=== PATIENT | male | born 1945 | race Hispanic/Latino ===

== ENCOUNTER 2017-02-15 18:03 | Inpatient (IN) | payer BC, MEDICARE ==
[2017-02-15] MEDS ORDERED: HYDROcodone/Acetaminophen 5/325 mg Tablet ONE (18:59)
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
[2017-02-15] MEDS ORDERED: Ondansetron HCl/PF 4 MG/2 ML Vial ONE (20:49)
[2017-02-15 21:16] LABS: #Eosinphils 0.1 thou/uL (0.0-0.7); #Lymphocytes 1.3 thou/uL (1.20-3.40); #Monocytes 0.7 thou/uL (0.11-0.59); #Neutrophils 11.4 thou/uL (1.40-6.50); %Basophils 0.1 % (0.0-1.0); %Eosinophils 0.5 % (0.0-10.0); %Lymphocytes 9.3 % (21.0-51.0); %Monocytes 4.9 % (0.0-10.0); Hematocrit 41.3 % (42.0-52.0); Mean Platelet Volume 6.6 fL (7.4-10.4); Red Blood Cell (RBC) Count 4.03 mill/uL (4.70-6.10); White Blood Cell (WBC) Count 13.4 thou/uL (4.8-10.8)
[2017-02-15 21:22] LABS: PTT 27.1 SEC (22.9-36.1); Prothrombin Time 14.4 SEC (12.0-14.7)
[2017-02-15 21:34] LABS: Lactic Acid - Sepsis 1.2 mmol/L (0.5-2.2)
[2017-02-15 21:38] LABS: ALT (SGPT) 16 U/L (8-55); AST (SGOT) 18 U/L (5-34); Alkaline Phosphatase 67 U/L (40-150); Anion Gap 12 mmol/L (10-20); BUN (Urea Nitrogen) 11 mg/dL (8.4-25.7); Bilirubin, Total 0.7 mg/dL (0.2-1.2); Calc. Creatinine Clearance 0 mL/min (70-130); Calcium 8.7 mg/dL (7.8-10.44); Carbon Dioxide 26 mmol/L (23-31); Chloride 104 mmol/L (98-107); Estimated GFR-MDRD 81; Globulin 2.6 g/dL (2.4-3.5); Lipase 34 U/L (8-78); Protein, Total 6.3 g/dL (5.8-8.1)
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
[2017-02-15] MEDS ORDERED: Morphine Sulfate 2 MG/ML SYRINGE SLOW IVP PRN (23:03)
[2017-02-15] MEDS ORDERED: Ondansetron ODT 4 MG TAB PO PRN (23:03)
[2017-02-15] MEDS ORDERED: Dextrose 5% in Water 1,000 ML IV PRN (23:03)
[2017-02-15] MEDS ORDERED: Dextrose 50% Abboject 50 ML SYRINGE SLOW IVP PRN (23:03)
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
[2017-02-15] MEDS: Sodium Chloride 0.9% 1,000 ML IV SCH (23:19)
[2017-02-15 23:49] VITALS: BMI 23.4
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
[2017-02-16 05:26] LABS: #Basophils 0.1 thou/uL (0.0-0.2); #Eosinphils 0.1 thou/uL (0.0-0.7); #Lymphocytes 1.2 thou/uL (1.20-3.40); #Monocytes 0.6 thou/uL (0.11-0.59); #Neutrophils 6.7 thou/uL (1.40-6.50); %Basophils 1.5 % (0.0-1.0); %Eosinophils 0.7 % (0.0-10.0); %Lymphocytes 13.5 % (21.0-51.0); %Monocytes 7.2 % (0.0-10.0); Hematocrit 39.2 % (42.0-52.0); Mean Platelet Volume 6.5 fL (7.4-10.4); Red Blood Cell (RBC) Count 3.79 mill/uL (4.70-6.10); White Blood Cell (WBC) Count 8.6 thou/uL (4.8-10.8)
[2017-02-16 05:35] LABS: Anion Gap 10 mmol/L (10-20); BUN (Urea Nitrogen) 10 mg/dL (8.4-25.7); Calc. Creatinine Clearance 77 mL/min (70-130); Calcium 8.1 mg/dL (7.8-10.44); Carbon Dioxide 25 mmol/L (23-31); Chloride 106 mmol/L (98-107); Estimated GFR-MDRD Greater than 90
[2017-02-16] MEDS ORDERED: Dextrose 50% Abboject 50 ML SYRINGE SLOW IVP PRN (08:20)
[2017-02-16] MEDS ORDERED: HumaLOG 300 UNITS/3 ML VIAL SC PRN (08:20)
[2017-02-16] MEDS ORDERED: Dextrose 5% in Water 1,000 ML IV PRN (08:20)
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
[2017-02-16] MEDS: Famotidine/PF 20 mg/2ml Vial SLOW IVP SCH ×2 (09:08→20:18)
[2017-02-16] MEDS: Sodium Chloride 0.9% 1,000 ML IV SCH ×2 (09:17→20:17)
[2017-02-16] MEDS: Famotidine 20 MG TAB PO SCH ×2 (12:55→20:18)
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
[2017-02-16] MEDS ORDERED: Midazolam HCl 2 mg/2 ml Vial ONE (17:28)
[2017-02-16] MEDS ORDERED: Fentanyl 100 MCG/2 ML VIAL ONE ×2 (17:29→19:09)
[2017-02-16] MEDS ORDERED: Lidocaine 2% Jelly 5 ML TUBE ONE (17:30)
[2017-02-16] MEDS ORDERED: Lidocaine 1% PF 5 ML VIAL ONE (17:48)
[2017-02-16] MEDS ORDERED: Ondansetron HCl/PF 4 MG/2 ML Vial ONE (17:48)
[2017-02-16] MEDS ORDERED: Propofol 200 MG/20 ML VIAL ONE (17:48)
[2017-02-16] MEDS ORDERED: ePHEDrine/0.9% NaCl/PF SYRINGE 50 mg/10 ml ONE (17:48)
[2017-02-16] MEDS ORDERED: HYDROcodone/Acetaminophen 7.5/325 mg Tablet PO PRN ×2 (18:18)
[2017-02-16] MEDS ORDERED: Ketorolac Tromethamine 30 MG/ML VIAL IVP PRN (18:19)
[2017-02-16] MEDS ORDERED: Promethazine HCl 25 MG/ML VIAL IM PRN (18:44)
[2017-02-16] MEDS ORDERED: Ondansetron HCl/PF 4 MG/2 ML Vial IVP PRN (18:44)
[2017-02-16] MEDS ORDERED: Promethazine HCl 25 MG/ML VIAL SLOW IVP PRN (18:44)
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
[2017-02-17] MEDS: Sodium Chloride 0.9% 1,000 ML IV SCH ×2 (00:03→05:59)
[2017-02-17 05:25] LABS: #Lymphocytes 0.9 thou/uL (1.20-3.40); #Monocytes 0.7 thou/uL (0.11-0.59); #Neutrophils 7.5 thou/uL (1.40-6.50); %Eosinophils 0.5 % (0.0-10.0); %Lymphocytes 9.6 % (21.0-51.0); %Monocytes 7.3 % (0.0-10.0); Hematocrit 39.7 % (42.0-52.0); Mean Platelet Volume 7.1 fL (7.4-10.4); Red Blood Cell (RBC) Count 3.81 mill/uL (4.70-6.10); White Blood Cell (WBC) Count 9.1 thou/uL (4.8-10.8)
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
[2017-02-17] MEDS ORDERED: HYDROcodone/Acetaminophen 10/325 mg Tablet PO PRN (09:44)
[2017-02-17] MEDS: HYDROcodone/Acetaminophen 10/325 mg Tablet PO SCH ×3 (09:59→21:26)
[2017-02-17] MEDS: Famotidine 20 MG TAB PO SCH ×2 (10:00→21:26)
[2017-02-17] MEDS: Ketorolac Tromethamine 30 MG/ML VIAL IVP SCH ×2 (18:42)
[2017-02-17] MEDS: Ondansetron HCl/PF 4 MG/2 ML Vial IVP PRN (21:27)
[2017-02-18] MEDS: Ketorolac Tromethamine 30 MG/ML VIAL IVP SCH ×5 (00:24→23:40)
[2017-02-18] MEDS: HYDROcodone/Acetaminophen 10/325 mg Tablet PO SCH ×4 (00:33→11:48)
[2017-02-18] MEDS ORDERED: Docusate 100 MG CAP PO SCH (03:00)
[2017-02-18] MEDS ORDERED: Senokot 8.6 MG TAB PO SCH (03:00)
[2017-02-18 05:10] LABS: #Eosinphils 0.1 thou/uL (0.0-0.7); #Lymphocytes 1.4 thou/uL (1.20-3.40); #Monocytes 0.8 thou/uL (0.11-0.59); #Neutrophils 6.6 thou/uL (1.40-6.50); %Basophils 0.5 % (0.0-1.0); %Eosinophils 1.5 % (0.0-10.0); %Lymphocytes 15.1 % (21.0-51.0); %Monocytes 8.7 % (0.0-10.0); Hematocrit 40.3 % (42.0-52.0); Mean Platelet Volume 6.7 fL (7.4-10.4); Red Blood Cell (RBC) Count 3.88 mill/uL (4.70-6.10); White Blood Cell (WBC) Count 8.9 thou/uL (4.8-10.8)
[2017-02-18 05:17] LABS: Anion Gap 11 mmol/L (10-20); BUN (Urea Nitrogen) 11 mg/dL (8.4-25.7); Calc. Creatinine Clearance 74 mL/min (70-130); Calcium 8.1 mg/dL (7.8-10.44); Carbon Dioxide 25 mmol/L (23-31); Chloride 103 mmol/L (98-107); Estimated GFR-MDRD 88; Phosphorus 2.6 mg/dL (2.3-4.7)
[2017-02-18] MEDS: Ondansetron HCl/PF 4 MG/2 ML Vial IVP PRN ×3 (06:01→17:31)
[2017-02-18] MEDS: Docusate 100 MG CAP PO SCH (09:13)
[2017-02-18] MEDS: Bisacodyl 10 MG SUPP PR SCH (09:13)
[2017-02-18] MEDS: Famotidine 20 MG TAB PO SCH ×2 (09:14→20:15)
[2017-02-18] MEDS: Senokot 8.6 MG TAB PO SCH (09:15)
[2017-02-18] MEDS ORDERED: Polyethylene Glycol 3350 17 GM Packet PO SCH ×2 (10:15)
[2017-02-18] MEDS ORDERED: Scopolamine 1.5 mg/72 hour Patch TD SCH (11:00)
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
[2017-02-18] MEDS ORDERED: traMADol HCl 50 MG TAB PO PRN (16:42)
[2017-02-18] MEDS: Acetaminophen 500 MG TAB PO SCH ×2 (17:23→23:39)
[2017-02-18] MEDS: traMADol HCl 50 MG TAB PO SCH ×2 (17:23→23:39)
--- NOTE | 2017-02-18 18:38 | RAD ---
EXAM: ONE VIEW ABDOMEN 02/18/17 HISTORY: Vomiting and nausea. COMPARISON: None. FINDINGS: Nonspecific bowel gas pattern. Nondistended, nondilated air filled loop of colon with scattered feca l material. No suspicious densities in the abdomen and pelvis. No evidence of pneumoperitoneum on th is supine projection. Three separate screws traverse the right hip. IMPRESSION: Nonspecific bowel gas pattern. POS: [facility]
[2017-02-18] MEDS ORDERED: Enoxaparin Sodium 40 MG/0.4 ML SYRINGE SC SCH (21:00)
[2017-02-19] MEDS: Ketorolac Tromethamine 30 MG/ML VIAL IVP SCH ×2 (05:46→11:17)
[2017-02-19] MEDS: Acetaminophen 500 MG TAB PO SCH ×2 (05:46→11:17)
[2017-02-19] MEDS: traMADol HCl 50 MG TAB PO SCH ×2 (05:46→11:17)
[2017-02-19] MEDS: Famotidine 20 MG TAB PO SCH (08:14)
[2017-02-19] MEDS: Docusate 100 MG CAP PO SCH (08:14)
[2017-02-19] MEDS: Senokot 8.6 MG TAB PO SCH (08:14)
[2017-02-19 08:20] VITALS: TEMP 97.6
[2017-02-19] MEDS ORDERED: Polyethylene Glycol 3350 17 GM Packet PO SCH (09:00)
[2017-02-19 09:08] LABS: Anion Gap 11 mmol/L (10-20); BUN (Urea Nitrogen) 20 mg/dL (8.4-25.7); Calc. Creatinine Clearance 71 mL/min (70-130); Calcium 8.5 mg/dL (7.8-10.44); Carbon Dioxide 27 mmol/L (23-31); Chloride 104 mmol/L (98-107); Estimated GFR-MDRD 84; Magnesium 2.3 mg/dL (1.6-2.6); Phosphorus 2.7 mg/dL (2.3-4.7)
[2017-02-19 10:49] VITALS: BP 138/56
[2017-02-19] MEDS: Bisacodyl 10 MG SUPP PR SCH (10:50)
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
== END 2017-02-19 11:41 | DRG 956 ==
LOC: ERS 18:03 → SJJU 22:03
PROVIDERS: ADMIT Surgery; ATTEND Surgery
PROC: 0QS634Z Reposition Right Upper Femur with Internal Fixation Device, Percutaneous Approach (ICD-10-PCS; principal; 2017-02-16)
DX: S72.011A Unspecified intracapsular fracture of right femur, initial encounter for closed fracture (principal); S32.591A Other specified fracture of right pubis, initial encounter for closed fracture; E11.9 Type 2 diabetes mellitus without complications; V19.3XXA Pedal cyclist (driver) (passenger) injured in unspecified nontraffic accident, initial encounter; Y93.55 Activity, bike riding; R11.2 Nausea with vomiting, unspecified; K59.00 Constipation, unspecified; M19.90 Unspecified osteoarthritis, unspecified site; Z95.1 Presence of aortocoronary bypass graft; Z85.6 Personal history of leukemia; Z87.891 Personal history of nicotine dependence
CPT/HCPCS: 36415; 36416; 70450; 71010; 72125; 74000; 76001; 80048; 80053; 83605; 83690; 83735; 84100; 85025; 85610; 85730; 86850; 86900; 86901; 96374; A4216; C1713; C1769; G0390; G8978-GP-CL; G8979-GP-CJ; G8987-GO-CK; G8988-GO-CI; J1650; J1885; J2001; J2250; J2270; J2405; J2704; J3010; Q0162; S0028